=== PATIENT | female | born 1960 ===

== ENCOUNTER 2020-11-19 05:58 | Day surgery (SDC) | payer OTHER | END 2020-11-19 12:05 | disposition home or self-care (01) | LOC: AMB-ENDOS 05:58 | PROVIDERS: ATTEND Surgery | DX: K62.4 Stenosis of anus and rectum (principal); K64.8 Other hemorrhoids; Z20.822 Contact with and (suspected) exposure to COVID-19 ==

== ENCOUNTER 2021-06-25 07:41 | Day surgery (SDC) | payer OTHER | END 2021-06-25 12:40 | disposition home or self-care (01) | LOC: AMB-ENDOS 07:41 | PROVIDERS: ATTEND Surgery | DX: K57.30 Diverticulosis of large intestine without perforation or abscess without bleeding (principal); K56.609 Unspecified intestinal obstruction, unspecified as to partial versus complete obstruction; K64.8 Other hemorrhoids ==